=== PATIENT | female | born 1990 | race Caucasian/White ===

== ENCOUNTER 2022-03-15 01:03 | Emergency (ER) | payer MEDICAID ==
[~2022-03-15] VITALS: Ht 172.7 cm; Wt 65.8 kg
[2022-03-15 01:20] VITALS: BP_SYST 140; BP_SYST 147
--- NOTE | 2022-03-15 02:00 | NUR ---
Received Pt via EMS to Rm #8. Homeless female that has no address, brought by EMS from [place] [address] parking lot, CC: body ache. EMS called by [address] Orosco at bedside.
[2022-03-15] MEDS ORDERED: NACL 0.9% 1,000 ML IV ONE (02:45)
[2022-03-15 03:12] LABS: BASOPHILS # (AUTO) 0.1 K/uL (0.0-0.2); BASOPHILS % (AUTO) 0.8 % (0.0-2.0); EOSINOPHILS # (AUTO) 0.1 K/uL (0.0-0.4); EOSINOPHILS % (AUTO) 0.6 % (0.0-4.0); HEMATOCRIT 33.1 % (36-48); HEMOGLOBIN 10.8 g/dL (12.0-16.0); LYMPHOCYTES # (AUTO) 2.6 K/uL (1.0-5.5); LYMPHOCYTES % (AUTO) 13.7 % (20.5-51.5); MEAN CORPUSCULAR HEMOGLOBIN 23 pg (27-31); MEAN CORPUSCULAR HGB CONC 33 % (32-36); MEAN CORPUSCULAR VOLUME 71 fL (79.0-98.0); MONOCYTES # (AUTO) 1.3 K/uL (0.0-1.0); NEUTROPHILS # (AUTO) 14.6 K/uL (1.8-7.7); NEUTROPHILS % (AUTO) 77.9 % (40.0-70.0); PLATELET COUNT (AUTO) 405 K/uL (130-430); RED BLOOD CELL COUNT(AUTO) 4.65 MIL/uL (4.2-6.2); RED CELL DISTRIBUTION WIDTH 21.3 % (9.0-15.0); WHITE BLOOD COUNT (AUTO) 18.7 K/uL (4.8-10.8)
[2022-03-15 03:32] LABS: CALCIUM 9.3 mg/dL (8.4-11.0); CREATININE 1.08 mg/dL (0.55-1.30); POTASSIUM 3.5 mmol/L (3.5-5.1)
[2022-03-15 03:35] VITALS: BP_SYST 138
[2022-03-15 03:37] LABS: ALBUMIN 4.3 g/dL (3.4-4.8)
--- NOTE | 2022-03-15 03:43 | NUR ---
Patient given written and verbal discharge instructions and verbalizes understanding, however refuses to leave the ER. Security called there efforts were ineffective. Law enforcement called to asist. Pt is yelling obscene words at security, and refuses to leave, w/ verbalization of imagined confabulation of different made up events. ER MD was unable to discus with patient the results and treatment provided, due to her present mental state and refusal to leave the ED. Patient in stable condition. ID arm band removed. IV catheter removed intact and dressing applied, no active bleeding. Opportunity for questions provided and answered.
--- NOTE | 2022-03-15 03:55 | NUR ---
KATINA PEDROZA CALLED, PT REFUSING TO LEAVE THE ED AFTER BEING MEDICALLY CLEARED. PT STATES LAYLA MOLINA TOLD HER SHE WAS GOING TO SLEEP HERE FOR 6 DAYS AND THEN BE TRASFERED TO ICU. PT STATES, "I HAVE BLISTERS ON MY FEET AND I HAVE TO HOLD MY DOG ALL NIGHT, I CANT SLEEP, I NEED TO GO TO ICU." PT HAS PRESSURED SPEECH, AH/VH. YELLING AND USING PROFANITY.
[2022-03-15] MEDS ORDERED: SODIUM BICARBONATE 8.4% JECT 50 MEQ/50 ML SYRINGE ONE (13:07)
== END 2022-03-15 03:35 | disposition home or self-care (01) ==
LOC: SED 01:03
DX: F23 Brief psychotic disorder (principal); E86.0 Dehydration; Z79.899 Other long term (current) drug therapy
CPT/HCPCS: 99283; 96360; 80053; 85025; 36415; J7030

== ENCOUNTER 2022-03-15 05:39 | Inpatient (IN) | payer MEDICAID ==
[~2022-03-15] VITALS: Ht 162.6 cm; Wt 88.0 kg
[2022-03-15 06:19] VITALS: BP_SYST 138
--- NOTE | 2022-03-15 06:29 | NUR ---
Patient triaged and placed in waiting room. VSS and patient appears in no acute distress at this time. MD Simental notified of need for MSE.
[2022-03-15 07:35] VITALS: BP_SYST 127
[2022-03-15 09:06] LABS: BASOPHILS # (AUTO) 0.2 K/uL (0.0-0.2); BASOPHILS % (AUTO) 1.5 % (0.0-2.0); EOSINOPHILS # (AUTO) 0.2 K/uL (0.0-0.4); EOSINOPHILS % (AUTO) 1.2 % (0.0-4.0); HEMATOCRIT 32.4 % (36-48); HEMOGLOBIN 10.4 g/dL (12.0-16.0); LYMPHOCYTES # (AUTO) 2.1 K/uL (1.0-5.5); LYMPHOCYTES % (AUTO) 13.5 % (20.5-51.5); MEAN CORPUSCULAR HEMOGLOBIN 23 pg (27-31); MEAN CORPUSCULAR HGB CONC 32 % (32-36); MEAN CORPUSCULAR VOLUME 72 fL (79.0-98.0); MONOCYTES % (AUTO) 6.3 % (1.7-9.3); NEUTROPHILS # (AUTO) 12.1 K/uL (1.8-7.7); NEUTROPHILS % (AUTO) 77.5 % (40.0-70.0); PLATELET COUNT (AUTO) 379 K/uL (130-430); RED CELL DISTRIBUTION WIDTH 21.6 % (9.0-15.0); WHITE BLOOD COUNT (AUTO) 15.6 K/uL (4.8-10.8)
[2022-03-15 09:12] LABS: ANION GAP 14 (5-15); CALCIUM 9.2 mg/dL (8.4-11.0); CHLORIDE 97 mmol/L (98-107); CREATININE 0.99 mg/dL (0.55-1.30); GLUCOSE 71 mg/dL (70-99); POTASSIUM 3.6 mmol/L (3.5-5.1); SODIUM SERUM 132 mmol/L (136-145); UREA NITROGEN, BLOOD 20 mg/dL (8-21)
[2022-03-15 09:23] LABS: GFR AFRICAN AMERICAN 83 mL/min (>90)
[2022-03-15 09:28] LABS: ALANINE AMINOTRANSFERASE 36 U/L (12-78); ASPARTATE AMINOTRANSFERASE 83 U/L (10-37); TOTAL BILIRUBIN 0.8 mg/dL (0.0-1.0)
--- NOTE | 2022-03-15 09:30 | NUR ---
Assumed care of pt who came in from streets c/o severe pain to her body and reoccurent incontinence. Pt has hx of psychiatric conditions including schizoaffective disorder. Denies drug alcohol use. Pt appears fidgety and restless. She appears paranoid and uncomfortable with her environment. Pt is A&Ox4 and appears in no acute distress at this time. Will continue to monitor and provide care as ordered.
[2022-03-15 09:51] LABS: ACETONE, SERUM POSITIVE (NEGATIVE)
--- NOTE | 2022-03-15 10:06 | NUR ---
ER Dr. Simental at bedside examining patient.
[2022-03-15] MEDS ORDERED: SODIUM BICARBONATE 8.4% JECT 50 MEQ/50 ML SYRINGE IVP ONE (10:15)
[2022-03-15] MEDS ORDERED: NACL 0.9% 3,000 ML IV ONE (10:15)
[2022-03-15 10:16] LABS: CKMB RELATIVE INDEX 1.1 (0.0-2.9); CREATINE KINASE MB 33.9 ng/mL (0-3.6)
[2022-03-15] MEDS ORDERED: LORazepam 2 MG/ML VIAL IVP PRN (11:30)
[2022-03-15] MEDS ORDERED: ZOLPIDEM TARTRATE 5 MG TABLET PO PRN (11:30)
[2022-03-15] MEDS ORDERED: MAGNESIUM SULFATE 50 ML IV PRN (11:30)
[2022-03-15] MEDS ORDERED: MUPIROCIN 2% TOPICAL OINTMENT 22 GM NS PRN (11:30)
[2022-03-15] MEDS ORDERED: DOCUSATE SODIUM 100 MG CAPSULE PO PRN (11:30)
[2022-03-15] MEDS ORDERED: ACETAMINOPHEN 325 MG TABLET PO PRN (11:30)
[2022-03-15] MEDS ORDERED: MORPHINE 2 MG/ML INJ. SYRINGE IVP PRN ×2 (11:30)
[2022-03-15] MEDS ORDERED: ONDANSETRON HCL 4 MG/2 ML VIAL IVP PRN (11:30)
[2022-03-15] MEDS ORDERED: POTASSIUM CHLORIDE 20 MEQ TAB.PRT.SR PO PRN (11:30)
--- NOTE | 2022-03-15 12:30 | NUR ---
Admit bed requested Patient will be admitted to care of Dr. James. Admitted to Med Surg unit. Diagnosis Rhabdomyolosis Inpatient (Yes or No) Y Observation (Yes or No) N Orientation concerns or request close to nursing station (Yes or No) N Covid Status NEG On vent or bipap NO Isolation requirements NO Needs a sitter NO From Home (Yes or if No enter name of facility) YES Requires Dialysis (Yes or No) NO Med Rec Completed (Yes of No) YES
[2022-03-15] MEDS: NACL 0.9% 1,000 ML IV SCH ×2 (17:09→21:00)
[2022-03-15 17:40] LABS: BLOOD, URINE 1+ (NEGATIVE); CLARITY/URINE CLEAR (CLEAR); COLOR,URINE YELLOW (YELLOW); GLUCOSE,URINE NEGATIVE (NEGATIVE); KETONES,URINE 3+ (NEGATIVE); LEUKOCYTE ESTERASE ,URINE NEGATIVE (NEGATIVE); NITRITE, URINE NEGATIVE (NEGATIVE); PROTEIN URINE NEGATIVE (NEGATIVE); UROBILINOGEN,URINE 0.2 (0.2-1.0)
[2022-03-15 17:49] LABS: BILIRUBIN,URINE 1+ (NEGATIVE)
[2022-03-15 17:50] LABS: BACTERIA,URINE None Seen /HPF (None Seen); MUCUS,URINE None Seen /LPF (None Seen); RBC,URINE 0-3 /HPF (0-3); WBC,URINE NONE SEEN /HPF (0-3)
[2022-03-15 18:00] LABS: BARBITURATE, URINE NEGATIVE (NEG <=200); URINE AMPHETAMINE POSITIVE (NEG <=500)
[2022-03-15 18:01] LABS: BENZODIAZEPINE, URINE NEGATIVE (NEG <=150); CANNABINOID, URINE POSITIVE (NEG <=50); COCAINE, URINE NEGATIVE (NEG <=150); METHAMPHETAMINES SCREEN,URINE POSITIVE (NEG <=500); OPIATE, URINE NEGATIVE (NEG <=100); PHENCYCLIDINE SCREEN,URINE NEGATIVE (NEG <=25); UR TRICYCLIC ANTIDEPRESSANTS NEGATIVE (NEG <=300); URINE METHADONE NEGATIVE (NEG <=200); URINE OXYCODONE SCREEN NEGATIVE (NEG <=100); URINE PROPOXYPHENE SCREEN NEGATIVE (NEG <=300)
--- NOTE | 2022-03-15 19:21 | NUR ---
Patient will be admitted to care of [facility]. Admitted to Med Surg unit. Will go to room 102A. Belongings list completed. Complete and up to date summary report printed. SBAR report to be given at bedside with opportunity for questions.
--- NOTE | 2022-03-15 19:26 | NUR ---
New admit attempting to elope I met patient in hallway she was riding on wheelchair and about to get up-fall while chair was in motion. I asked staff where is she going and the ER staff replied she is a new admit going to rm 102 and adds that report was called in and she is only bringing patient to the unit. I fastened patient with seatbelt and we arrived to room 102A. I was opening the bed and the patient informed the ER staff that she wants to go to the bathroom. The ER staff left and immediately the patient stepped out of the restroom and was stating "I need to go, I need to get out". I followed her, asked her to wait and she continued to walk down the hallway. I tried to reach out and tap her shoulder and she said "don't touch me" and continued to walk as fast as she could. Hossein RN caught up and we both talked to her and explained, she can leave, but we need to removed IV and ID band and she refused. Security was called and we were unable to convince her to allow us to remove IV. Security informed her police needs to be informed when a patient leaves the hospital with an IV in place.
--- NOTE | 2022-03-15 19:36 | NUR ---
Patient back in room Patient is sitting in room, crying, yelling and does not know what I want. I explained she is in the hospital and we will take vital signs and she refused, she got the hospital phone and through it on the floor. I stepped out with v/s machine.
[2022-03-16 00:11] VITALS: BP_SYST 132
[2022-03-16] MEDS: NACL 0.9% 1,000 ML IV SCH (00:50)
[2022-03-16 05:17] VITALS: BP_SYST 140
[2022-03-16 06:53] LABS: BASOPHILS # (AUTO) 0.1 K/uL (0.0-0.2); BASOPHILS % (AUTO) 0.9 % (0.0-2.0); EOSINOPHILS # (AUTO) 0.2 K/uL (0.0-0.4); EOSINOPHILS % (AUTO) 2.6 % (0.0-4.0); HEMATOCRIT 28.6 % (36-48); HEMOGLOBIN 9.4 g/dL (12.0-16.0); LYMPHOCYTES # (AUTO) 1.5 K/uL (1.0-5.5); LYMPHOCYTES % (AUTO) 18.2 % (20.5-51.5); MEAN CORPUSCULAR HEMOGLOBIN 24 pg (27-31); MEAN CORPUSCULAR HGB CONC 33 % (32-36); MEAN CORPUSCULAR VOLUME 72 fL (79.0-98.0); MONOCYTES # (AUTO) 0.6 K/uL (0.0-1.0); MONOCYTES % (AUTO) 6.8 % (1.7-9.3); NEUTROPHILS # (AUTO) 6.1 K/uL (1.8-7.7); NEUTROPHILS % (AUTO) 71.5 % (40.0-70.0); PLATELET COUNT (AUTO) 302 K/uL (130-430); RED BLOOD CELL COUNT(AUTO) 3.99 MIL/uL (4.2-6.2); RED CELL DISTRIBUTION WIDTH 21.4 % (9.0-15.0); WHITE BLOOD COUNT (AUTO) 8.5 K/uL (4.8-10.8)
[2022-03-16 07:17] LABS: CREATININE 0.55 mg/dL (0.55-1.30)
[2022-03-16 08:00] VITALS: BP_SYST 111
[2022-03-16 08:10] LABS: POTASSIUM 2.9 mmol/L (3.5-5.1)
[2022-03-16] MEDS ORDERED: POTASSIUM CHLORIDE 20 MEQ TAB.PRT.SR PO ONE (08:15)
[2022-03-16 08:28] LABS: CKMB RELATIVE INDEX 0.8 (0.0-2.9); CREATINE KINASE MB 13.5 ng/mL (0-3.6)
--- NOTE | 2022-03-16 08:30 | NUR ---
CRITICAL LAB: adali from Laboratory called with critical lab value K 2.9. Medical record number and patient name verified. Read back of values done. notified of value. potassium replacement orders given at this time.
--- NOTE | 2022-03-16 09:10 | NUR ---
patient had shower and asking to remove IV and she wants to leave,pt informed her potassium is critical low and will not be discharge until later today,patient refused meds and said " You don't know who I am."explained patient risk for being leaving AMA.pt refused to sign the AMA and leaving by herself.
== END 2022-03-16 09:10 | disposition left against medical advice (07) | DRG 351 ==
LOC: SED 05:39 → SMU 11:23
PROVIDERS: ADMIT General Practice; ATTEND General Practice
DX: M62.82 Rhabdomyolysis (principal); E87.1 Hypo-osmolality and hyponatremia; E86.0 Dehydration; F20.9 Schizophrenia, unspecified; Z20.822 Contact with and (suspected) exposure to COVID-19; Z79.899 Other long term (current) drug therapy; F19.10 Other psychoactive substance abuse, uncomplicated
CPT/HCPCS: 36415; 71045; 80048; 80053; 80307; 81000; 82009; 82550; 82553; 83605; 83735; 84703; 85025; 96374; 99285; J2270